=== PATIENT | male | born 1945 | race Caucasian/White ===

== ENCOUNTER 2020-12-25 07:43 | Day surgery (SDC) | payer MEDICARE ==
[~2020-12-25] VITALS: Ht 177.8 cm; Wt 101.8 kg
[2020-12-25] VITALS (13 sets, daily range): BP systolic 100–128; BP diastolic 56–74
[~2020-12-25 07:43] MED LIST: ACYC-129 PO; AMLO5TAB4 PO; BACL10TA2 PO; CETI-90 PO; CHOL10002 PO; CLOP75TA34 PO; COU7.5T PO; CYAN500T71 PO; DIPH-405 PO; DOCU100C59 PO; FLO0.4C PO; FURO-150 PO; LACT1CAP65 PO; MULT-1141 PO; NALO25TA4 PO; OMEG1CAP13 PO; OXYC-658 PO; POTA10CA44 PO; PREG150C PO; PROP10TA10 PO; SENN-263 PO; SIMV10TA2 PO; TURM538C PO; VALE150C PO; VITE1000C PO; [UNRECOGNIZED DRUG - CODE] PO; [UNRECOGNIZED DRUG - OTHER] PO
[2020-12-25] MEDS ORDERED: LORazepam 0.5 MG tablet PO PRN (08:20)
[2020-12-25] MEDS ORDERED: diphenhydrAMINE 25mg capsule PO PRN (08:20)
[2020-12-25] MEDS ORDERED: normal saline 1,000 ML IV SCH (08:20)
[2020-12-25] MEDS ORDERED: FURO40TA4 PO (08:37)
[2020-12-25] MEDS ORDERED: OMEP40CA21 PO (08:37)
[2020-12-25] MEDS ORDERED: MELO-102 PO (08:37)
[2020-12-25] MEDS ORDERED: ISOS30TA84 PO (08:37)
[2020-12-25] MEDS ORDERED: IBUP-1985 PO (08:37)
[2020-12-25] MEDS ORDERED: NITR0.4T48 SL (08:37)
[2020-12-25] MEDS ORDERED: TADA20TA43 PO (08:37)
[2020-12-25] MEDS ORDERED: LIDOcaine/PRILOcaine 5gm cream TP ONE (08:40)
[2020-12-25] MEDS ORDERED: midazolam 1 mg/ML 2ml injection ONE (08:57)
[2020-12-25] MEDS ORDERED: verapamil 2.5 mg/ml inj IV ONE (08:57)
[2020-12-25] MEDS ORDERED: LIDOcaine 1% (10mg/ml)w/preservative injection 20ml MDV ONE (08:58)
[2020-12-25] MEDS ORDERED: iohexol 350 MG/ML 50ML vial IV ONE (08:58)
[2020-12-25] MEDS ORDERED: heparin 1,000unit/ml 10ml vial 10 ML ONE (08:58)
[2020-12-25] MEDS ORDERED: fentaNYL/PF 50MCG/1 ML 2ML syringe ONE (08:58)
[2020-12-25] MEDS ORDERED: nitroGLYCERIN-Tridil 50MG/D5W 250 ML IV ONE (08:58)
[2020-12-25] MEDS ORDERED: iohexol 350MG/ML 100ml bottle IV ONE (08:58)
--- NOTE | 2020-12-25 11:59 | NUR ---
Patient complaining of headache. New order for tylenol 650 mg PO.
[2020-12-25] MEDS ORDERED: acetaminophen 325mg tablet PO PRN (12:00)
== END 2020-12-25 16:30 | disposition home or self-care (01) ==
LOC: SSTAY O 07:43
PROVIDERS: ATTEND Internal Medicine Cardiovascular Disease
DX: R94.39 Abnormal result of other cardiovascular function study (principal); R06.02 Shortness of breath; I25.10 Atherosclerotic heart disease of native coronary artery without angina pectoris; E78.5 Hyperlipidemia, unspecified; J44.9 Chronic obstructive pulmonary disease, unspecified; I10 Essential (primary) hypertension; Z95.5 Presence of coronary angioplasty implant and graft; Z79.899 Other long term (current) drug therapy
CPT/HCPCS: 76937; 93005; 93458; 93571; 99152; 99153; C1751; C1769; C1894; J1644; J2001; J2250; J3010; J7030; Q0163; Q9967; A4620; A5120; A6258; J3490